=== PATIENT | female | born 1980 | race Caucasian/White ===

== ENCOUNTER 2021-03-27 12:10 | Emergency (ER) | payer OTHER ==
[~2021-03-27] VITALS: Ht 170.2 cm; Wt 75.0 kg
[2021-03-27 12:13] VITALS: BP 128/88
== END 2021-03-27 14:24 | disposition left against medical advice (07) ==
LOC: ER 12:10
DX: R10.2 Pelvic and perineal pain (principal); Z53.21 Procedure and treatment not carried out due to patient leaving prior to being seen by health care provider
CPT/HCPCS: 99281